=== PATIENT | male | born 1995 | race Hispanic/Latino ===

== ENCOUNTER 2019-02-04 14:16 | Emergency (ER) | payer OTHER ==
[~2019-02-04] VITALS: Ht 167.6 cm; Wt 61.0 kg
[2019-02-04] MEDS ORDERED: KETOROLAC TROMETHAMINE 30 MG/ML VIAL IV STA (14:43)
[2019-02-04] MEDS ORDERED: HYDROCODONE/APAP 5MG-325MG TAB PO ONE (14:45)
[2019-02-04] MEDS ORDERED: CEFTRIAXONE SOD 1 GM/NS 50 ML 50 ML IV ONE (14:45)
[2019-02-04] MEDS ORDERED: CLINDAMYCIN PHOS 600 MG/ 4 ML VIAL ONE (14:58)
[2019-02-04] MEDS ORDERED: CLINDAMYCIN 600MG / 50ML 50 ML IV ONE (15:30)
[2019-02-04] MEDS ORDERED: LIDOCAINE HCL 1% LOCAL INJ 20 ML VIAL ONE (15:50)
[2019-02-04] MEDS ORDERED: LIDOCAINE 1% 5ML-MPF INJ ONE (16:00)
[2019-02-04 16:42] VITALS: BP 158/92
== END 2019-02-04 16:35 | disposition home or self-care (01) ==
LOC: FSED 14:16
DX: L02.413 Cutaneous abscess of right upper limb (principal)
CPT/HCPCS: 26010; 80048; 85025; 96372; 96374; 99284; J0696; J1885; J2001

== ENCOUNTER 2022-10-18 19:12 | Emergency (ER) | payer OTHER ==
[~2022-10-18] VITALS: Ht 167.6 cm; Wt 65.8 kg
[2022-10-18] MEDS ORDERED: TRAMADOL HCL 50 MG TAB PO ONE (19:45)
[2022-10-18 20:30] VITALS: BP 11/70; PULSE 63
[2022-10-18] MEDS ORDERED: BACITRACIN ZINC 0.9GM TP ONE ×2 (20:45→20:48)
[2022-10-18] MEDS ORDERED: KETOROLAC TROME10 MG PO (21:15)
[2022-10-18] MEDS ORDERED: ANTIBIOTIC28.4 GM EXT (21:17)
[2022-10-18 21:40] VITALS: O2SAT 98
== END 2022-10-18 21:56 | disposition home or self-care (01) ==
LOC: FSED 19:15
DX: S42.032A Displaced fracture of lateral end of left clavicle, initial encounter for closed fracture (principal); S50.02XA Contusion of left elbow, initial encounter; M79.605 Pain in left leg; T14.8XXA Other injury of unspecified body region, initial encounter; V18.0XXA Pedal cycle driver injured in noncollision transport accident in nontraffic accident, initial encounter; Y93.55 Activity, bike riding; Y92.89 Other specified places as the place of occurrence of the external cause
CPT/HCPCS: 71045; 74018; 99283